=== PATIENT | male | born 1980 | race Caucasian/White ===

== ENCOUNTER 2017-03-17 06:12 | Day surgery (SDC) | payer OTHER ==
[~2017-03-17] VITALS: Ht 180.3 cm; Wt 97.5 kg
[2017-03-17] MEDS ORDERED: ONDANSETRON PF 4 MG/2 ML VIAL. IV PRN ×2 (07:00)
[2017-03-17] MEDS ORDERED: HYDROmorphone 2 MG/ML VIAL IV PRN ×2 (07:00)
[2017-03-17] MEDS ORDERED: fentaNYL PF VIAL 100 MCG/2 ML VIAL IV PRN ×5 (07:00)
[2017-03-17] MEDS ORDERED: PROCHLORPERAZINE 10 MG/2 ML VIAL. IV PRN ×2 (07:00)
[2017-03-17] MEDS ORDERED: MORPHINE SULFATE 2 MG/ML DISP.SYRIN. IV PRN (07:00)
[2017-03-17] MEDS ORDERED: IV RINGERS,LACTATED 1000ML 1,000 ML IV SCH ×2 (07:00)
[2017-03-17] MEDS ORDERED: ceFAZolin 2GM PREMIX 2 GM/50 ML BAG IV ONE (07:00)
[2017-03-17] MEDS ORDERED: LIDOCAINE 1% 1 ML SYRINGE. ID PRN ×2 (07:00)
[2017-03-17] MEDS ORDERED: LIDOCAINE 2% PF Vial for OR 5 ML VIAL. ONE (07:07)
[2017-03-17] MEDS ORDERED: PROPOFOL 20 ML IV ONE (07:07)
[2017-03-17] MEDS ORDERED: fentaNYL PF VIAL 100 MCG/2 ML VIAL ONE ×3 (07:07→09:10)
[2017-03-17] MEDS ORDERED: SUCCINYLCHOLINE 200 MG/10 ML VIAL. ONE (07:52)
[2017-03-17] MEDS ORDERED: DESFLURANE 16 TO 30 MINUTES. IH ONE (08:10)
[2017-03-17] MEDS ORDERED: DEXAMETHASONE SOD PHOS 20 MG/5 ML VIAL. ONE (08:10)
[2017-03-17] MEDS ORDERED: ONDANSETRON PF 4 MG/2 ML VIAL. ONE (08:10)
[2017-03-17] MEDS ORDERED: GELATIN SPONGE SIZE 100. ONE (08:21)
[2017-03-17] MEDS: MORPHINE SULFATE 4 MG/ML DISP.SYRIN. IV PRN ×4 (08:24→09:35)
[2017-03-17] MEDS ORDERED: MORPHINE SULFATE 4 MG/ML DISP.SYRIN. ONE ×2 (08:49→09:10)
[2017-03-17] MEDS ORDERED: BUPIVAC MPF-EPI 0.5%-1:200000 30 ML VIAL. ONE (08:49)
[2017-03-17] MEDS: fentaNYL PF VIAL 100 MCG/2 ML VIAL IV PRN ×4 (08:53→09:40)
--- NOTE | 2017-03-17 09:17 | PDOC ---
BRIEF OPERATIVE NOTE Date: Mar 17, 2017 Pre-Op Diagnosis hemorrhoids, bleeding, prolapsing Post-Op Diagnosis same Procedure Performed rigid proctoscopy hemorrhoidectomy Surgeon Jon Anesthesia Type: General Blood Loss 10cc IV Fluid 800cc Specimens Obtained hemorrhoids Findings two clusters of hemorrhoids 2:00 and 9:00 Complications none OPerative Note WK # [id number] BISMARK SUAREZ MD Mar 17, 2017 09:17
--- NOTE | 2017-03-17 09:18 | DISCH ---
DISCHARGE INSTRUCTIONS Condition on Discharge Condition on Discharge: Stable Activity After Discharge Activity Instructions for Disc: Activity as tolerated, Avoid exertion Lifting Instructions after Dis: No heavy lifting Diet after Discharge Diet after Discharge: Regular Wound Incision Care Wound/Incision Care: Ice to area for comfort Other wound/incision instructi: sitz bathes four times a day Follow-Up Follow up with: Jon in two weeks BISMARK SUAREZ MD Mar 17, 2017 09:18
[2017-03-17] MEDS ORDERED: HYDROcodone/APAP 5/325MG 1 TAB TABLET PO ONE (09:45)
--- NOTE | 2017-03-17 09:48 | OP ---
DATE OF SURGERY: 03/17/2017 PREOPERATIVE DIAGNOSIS: Bleeding prolapsing internal hemorrhoids. POSTOPERATIVE DIAGNOSIS: Bleeding prolapsing internal hemorrhoids. PROCEDURE: 1. Rigid proctoscopy. 2. Hemorrhoidectomy. SURGEON: Bsimark Suarez MD ANESTHESIA: General. ESTIMATED BLOOD LOSS: 10. IV FLUID: 800. INDICATIONS: The patient is a 36-year-old inmate with bleeding and prolapsed hemorrhoids, brought for hemorrhoidectomy. OPERATIVE FINDINGS: Two clusters were present, one at 9 o'clock, one at 2 o'clock. DESCRIPTION OF PROCEDURE: The patient was brought to the operating suite, given a general endotracheal anesthetic and placed in the prone jackknife position. Digital rectal exam was carried out and the rigid proctoscopy was done to approximately 16 cm from the anal verge where some tortuosity of the bowel was encountered. The prep was excellent. No mucosal abnormalities were seen as we withdrew the scope save the internal hemorrhoids. The area was then prepped and draped in usual sterile fashion after taping the buttocks apart. A 0.5% Marcaine with epinephrine was infiltrated for postoperative analgesia. A gentle 3-finger dilatation was carried out. Inspection of the anal canal revealed 2 clusters of hemorrhoidal veins, one at 9 o'clock and one at 2 o'clock. Each was approached in similar fashion. A proximal stitch of 2-0 chromic was placed in the anal canal. The skin on the perianal area was incised and the hemorrhoidal complex removed with LigaSure, taking care to preserve the sphincters. The mucosal rent was approximated using the 2-0 chromic suture. Good hemostasis was present. A Gelfoam pack was placed in the anal canal. Sterile dressing applied. The patient was taken out of the prone jackknife position, awakened from his anesthetic and taken to the recovery room in satisfactory condition. BISMARK SUAREZ MD DR: SHAD/elsie JOB#: [id number] / [id number]
[2017-03-17 09:56] VITALS: BP 120/76
--- NOTE | 2017-03-18 14:52 | PATHOLOGY ---
PATHOLOGY REPORT * * * * * * * * FINAL DIAGNOSIS: Segments of anal skin and squamous mucosa and soft tissue, hemorrhoidectomy: - Hemorrhoids. COMMENT: There is no evidence of malignancy. (JPM:pit; 03/18/2017) REPORT ELECTRONICALLY SIGNED BY: Frandy Springer M.D. DATE/TIME: 03/18/2017 14:51 * * * * * * * * GROSS PATHOLOGY: Received in formalin labeled "Deepa Londono, hemorrhoids," are two segments of galvan-pink epithelial covered tissue ranging from 1.0 to 3.3 cm in maximum dimensions. The epithelial surfaces appear intact, without grossly apparent lesions. On cut section, the subepithelial tissue has a highly vascular appearance. [employer] tissue is submitted in cassette A1. (JPM; 03/17/17) INITIAL CPT CODE(S): A; 16385 Professional services performed [place] [facility] [place] [address] Technical services performed by [facility] at [address] [place] [address], [address], [place] [address]. [facility], attention: Diya fax: [phone] SPECIMEN(S) RECEIVED: A.Hemorrhoids CLINICAL HISTORY: Bleeding, prolapsing hemorrhoids PATIENT: DEEPA LONDONO /AGE: 208/29/1980 (Age: 36) PATIENT #: [id number] ALT CASE #: SPECIMEN COLLECTION DATE: 03/17/2017 SPECIMEN RECEIVED DATE: 03/17/2017 [facility] - [address] [place] [address] - PHONE: [phone] * * * END OF REPORT * * *
== END 2017-03-17 10:19 | disposition home or self-care (01) ==
LOC: SURG 06:12
PROVIDERS: ATTEND Surgery
DX: K64.8 Other hemorrhoids (principal); E66.9 Obesity, unspecified; F32.9 Major depressive disorder, single episode, unspecified; Z68.34 Body mass index [BMI] 34.0-34.9, adult; Z72.0 Tobacco use; Z86.14 Personal history of Methicillin resistant Staphylococcus aureus infection
CPT/HCPCS: 45300; 46999; J0330; J1100; J2270; J2405; J2704; J3010; J3490; 88304; J0690; J2001